=== PATIENT | male | born 1965 | race Hispanic/Latino ===

== ENCOUNTER 2024-09-26 11:25 | Emergency (ER) | payer SELFPAY ==
[~2024-09-26] VITALS: Ht 167.6 cm; Wt 95.3 kg
[2024-09-26 11:33] VITALS: PULSE 77; RESP 16; TEMP 97.8; O2SAT 98
[2024-09-26] MEDS ORDERED: ONDANSETRON HCL INJ 2MG/ML 2ML 2 MG/ML VIAL IV PRN (11:45)
[2024-09-26] MEDS: DICYCLOMINE HCL 20 MG/2 ML VIAL IM ONE (12:22)
[2024-09-26] MEDS: SODIUM CHLORIDE 0.9% 1000ML 1,000 ML IV STA (12:22)
[2024-09-26 12:34] LABS: BASOPHILS # (AUTO) 0.1 (0.0-0.1); BASOPHILS % 0.4 % (0.0-1.0); EOSINOPHILS # (AUTO) 0.1 (0.0-0.4); EOSINOPHILS % 0.7 % (0.0-6.0); LYMPHOCYTES # (AUTO) 1.5 (1.0-3.2); LYMPHOCYTES % 11.3 % (18.0-39.1); MEAN CORPUSCULAR HEMOGLOBIN 31.4 pg (28-32); MEAN CORPUSCULAR HGB CONC 32.7 g/dL (31-35); MEAN CORPUSCULAR VOLUME 96.1 fL (81-99); MONOCYTES % 7.5 % (4.4-11.3); NEUTROPHILS # (AUTO) 10.7 (2.1-6.9); NEUTROPHILS % 79.8 % (38.7-80.0); PLATELET COUNT 376 x10e3/uL (140-360); RED CELL DISTRIBUTION WIDTH 12.9 % (11.7-14.4); WHITE BLOOD COUNT 13.41 x10e3/uL (4.8-10.8)
[2024-09-26 12:54] LABS: ALBUMIN 3.9 g/dL (3.5-5.0); ALBUMIN/GLOBULIN RATIO 0.8 (0.8-2.0); ANION GAP 16.9 mmol/L (8-16); BILIRUBIN,TOTAL 0.7 mg/dL (0.2-1.2); CALCIUM 9.5 mg/dL (8.4-10.2); CREATININE, SERUM 0.86 mg/dL (0.72-1.25); POTASSIUM 4.9 mmol/L (3.5-5.1); TOTAL PROTEIN 8.6 g/dL (6.5-8.1)
== END 2024-09-26 14:26 | disposition home or self-care (01) ==
LOC: ER 11:35
DX: R10.11 Right upper quadrant pain (principal); K57.92 Diverticulitis of intestine, part unspecified, without perforation or abscess without bleeding; R14.0 Abdominal distension (gaseous); R11.0 Nausea
CPT/HCPCS: 36415; 80053; 83690; 85025; 99283; J0500; J7030; J2405